=== PATIENT | male | born 1980 | race Caucasian/White ===

== ENCOUNTER 2017-11-17 14:58 | Emergency (ER) | payer MEDICARE, MEDICAID ==
[~2017-11-17] VITALS: Ht 177.8 cm; Wt 65.9 kg
[2017-11-17 15:39] VITALS: Ht 177.8 cm; Wt 65.9 kg
[2017-11-17] MEDS ORDERED: TYLENOL W/CODEI1 TAB PO (20:04)
[2017-11-17] MEDS ORDERED: ROBAXIN-750750 MG PO (20:04)
[2017-11-18 01:14] VITALS: BP 127/88
== END 2017-11-17 20:38 | disposition home or self-care (01) ==
LOC: D.ER 14:58
DX: M54.2 Cervicalgia (principal); M79.1 Myalgia; F17.200 Nicotine dependence, unspecified, uncomplicated

== ENCOUNTER 2017-11-27 08:24 | Emergency (ER) | payer MEDICARE ==
[~2017-11-27] VITALS: Ht 177.8 cm; Wt 40.9 kg
[~2017-11-27 08:24] MED LIST: ROBAXIN-750750 MG PO; TYLENOL W/CODEI1 TAB PO
[2017-11-27 08:35] VITALS: Ht 177.8 cm; Wt 40.9 kg
[2017-11-27 08:49] LABS: UDS - AMPHET POSITIVE QUAL (NEGATIVE); UDS - BARB NEGATIVE QUAL (NEGATIVE); UDS - BENZO NEGATIVE QUAL (NEGATIVE); UDS - COCAINE NEGATIVE QUAL (NEGATIVE); UDS - OPIATE NEGATIVE QUAL (NEGATIVE); UDS - PCP NEGATIVE QUAL (NEGATIVE); UDS - THC NEGATIVE QUAL (NEGATIVE)
[2017-11-27 08:51] LABS: BASOPHILS 0.3 % (0-2); EOSINOPHILS 1.4 % (0-7); HEMATOCRIT 38.9 % (42.0-54.0); HEMOGLOBIN 13.2 g/dL (13.5-17.5); IMMATURE GRANULOCYTES 0.3 % (0-5); LYMPHOCYTES 24.8 % (15-50); MCH 29.9 pg (26.0-34.0); MCHC 33.9 g/dL (31.0-37.0); MEAN PLATELET VOLUME 9.8 fL (7.4-10.4); MONOCYTES 13.1 % (2-11); NEUTROPHILS 60.1 % (40-80); PLATELET COUNT 285 10x3/uL (130-400); RBC 4.42 10x6/uL (4.20-6.10); RDW 13.2 % (11.5-14.5); WBC 13.5 10x3/uL (4.8-10.8)
[2017-11-27 09:01] LABS: ALBUMIN 3.8 g/dL (3.4-5.0); ALKALINE PHOSPHATASE 70 U/L (46-116); ALT (SGPT) 60 U/L (10-68); BILIRUBIN - TOTAL 2.25 mg/dL (0.2-1.3); CALC OSMOLALITY 269 mosm/kg (275-300); CALCIUM 8.4 mg/dL (8.5-10.1); CARBON DIOXIDE 27.8 mmol/L (21.0-32.0); CHLORIDE - SERUM 101 mmol/L (98-107); GLUCOSE 91 mg/dL (74-106); POTASSIUM - SERUM 3.6 mmol/L (3.5-5.1); SODIUM 134 mmol/L (136-145); UREA NITROGEN 18 mg/dL (7-18); eGFR NON AFRICAN AMERICAN 89 mL/min (90-120)
[2017-11-27 09:22] LABS: CKMB 25.1 U/L (0.0-3.6); CREATINE KINASE 1275 UL (21-232)
[2017-11-27 11:08] VITALS: BP 108/59
== END 2017-11-27 14:27 ==
LOC: D.ER 08:24
PROVIDERS: Family Medicine
DX: R45.851 Suicidal ideations (principal)